=== PATIENT | male | born 1965 | race African-American/Black ===

== ENCOUNTER 2023-03-29 07:41 | Day surgery (SDC) | payer BC ==
[2023-03-29 07:57] VITALS: BMI 28.8
[2023-03-29 09:36] VITALS: RESP 18; TEMP 97.4
[2023-03-29 09:50] VITALS: BP 106/61; PULSE 56
== END 2023-03-29 09:59 | disposition home or self-care (01) ==
LOC: FASU-ENDO 07:41
PROVIDERS: ATTEND Internal Medicine Gastroenterology
PROC: 0DJD8ZZ Inspection of Lower Intestinal Tract, Via Natural or Artificial Opening Endoscopic (ICD-10-PCS; principal; 2023-03-29 08:56)
DX: Z12.11 Encounter for screening for malignant neoplasm of colon (principal); K57.30 Diverticulosis of large intestine without perforation or abscess without bleeding; Z86.010 Personal history of colon polyps